=== PATIENT | female | born 1955 | race Two or more races ===

== ENCOUNTER 2016-11-26 11:23 | Outpatient (CLI) | payer OTHER | END 2016-11-26 13:23 | disposition home or self-care (01) | LOC: ECT 11:23 | DX: F33.2 Major depressive disorder, recurrent severe without psychotic features (principal); R45.851 Suicidal ideations ==

== ENCOUNTER 2016-11-29 05:03 | Outpatient (RCR) | payer OTHER ==
[~2016-11-29] VITALS: Ht 152.4 cm; Wt 79.4 kg
[2016-11-29] MEDS ORDERED: Succinylcholine 20mg/ml 10ml vial ONE (05:04)
[2016-11-29] MEDS ORDERED: NS 500ML IV ONE (05:04)
[2016-11-29] MEDS ORDERED: Methohexital Sodium Syr 100mg/10ml IVP ONE (05:04)
[2016-11-29] MEDS ORDERED: Midazolam 2mg/2ml Inj ONE (05:04)
[2016-11-29] MEDS ORDERED: Sodium Chloride 500ML 500 ML IV ONE (09:55)
[2016-12-02] MEDS ORDERED: Methohexital Sodium Syr 100mg/10ml IVP ONE (06:00)
[2016-12-02] MEDS ORDERED: Midazolam 2mg/2ml Inj ONE ×2 (06:00)
[2016-12-02] MEDS ORDERED: Succinylcholine 20mg/ml 10ml vial ONE (06:00)
[2016-12-02] MEDS ORDERED: Sodium Chloride 500ML 500 ML IV ONE (11:03)
[2016-12-04] MEDS ORDERED: Methohexital Sodium Syr 100mg/10ml IVP ONE (07:00)
[2016-12-04] MEDS ORDERED: Succinylcholine 20mg/ml 10ml vial ONE (07:00)
[2016-12-04] MEDS ORDERED: Midazolam 2mg/2ml Inj ONE (07:00)
[2016-12-04] MEDS ORDERED: Sodium Chloride 500ML 500 ML IV ONE (09:18)
[2016-12-06] MEDS ORDERED: Succinylcholine 20mg/ml 10ml vial ONE (06:00)
[2016-12-06] MEDS ORDERED: Midazolam 2mg/2ml Inj ONE (06:00)
[2016-12-06] MEDS ORDERED: Methohexital Sodium Syr 100mg/10ml IVP ONE (06:00)
[2016-12-06] MEDS ORDERED: Sodium Chloride 500ML 500 ML IV ONE (08:52)
== END 2016-12-07 | disposition home or self-care (01) ==
LOC: ECT 05:03
DX: F33.2 Major depressive disorder, recurrent severe without psychotic features (principal)
CPT/HCPCS: 90870; J0330; J2250; J7040

== ENCOUNTER 2016-12-09 07:30 | Outpatient (RCR) | payer OTHER ==
[~2016-12-09] VITALS: Ht 30.5 cm; Wt 0.5 kg
[2016-12-09] MEDS ORDERED: Succinylcholine 20mg/ml 10ml vial ONE (07:31)
[2016-12-09] MEDS ORDERED: Methohexital Sodium Syr 100mg/10ml IVP ONE (07:31)
[2016-12-09] MEDS ORDERED: NS 500ML IV ONE (07:31)
[2016-12-09] MEDS ORDERED: Midazolam 2mg/2ml Inj ONE (07:31)
[2016-12-09] MEDS ORDERED: Sodium Chloride 500ML 500 ML IV ONE (09:06)
== END 2017-01-07 | disposition home or self-care (01) ==
LOC: ECT 07:30
DX: F33.2 Major depressive disorder, recurrent severe without psychotic features (principal)
CPT/HCPCS: 90870; J0330; J2250; J7040

== ENCOUNTER 2017-01-22 10:27 | Outpatient (RCR) | payer OTHER ==
[~2017-01-22] VITALS: Ht 152.4 cm; Wt 78.0 kg
[2017-01-22] MEDS ORDERED: Methohexital Sodium Syr 100mg/10ml IVP ONE ×3 (10:28)
[2017-01-22] MEDS ORDERED: Midazolam 2mg/2ml Inj ONE ×3 (10:28)
[2017-01-22] MEDS ORDERED: Succinylcholine 20mg/ml 10ml vial ONE ×3 (10:28)
[2017-01-22 11:00] VITALS: BP 112/62
[2017-01-22] MEDS ORDERED: Sodium Chloride 500ML 500 ML IV ONE (11:13)
[2017-01-22 11:15] VITALS: BP 117/46
[2017-01-22 11:20] VITALS: BP 118/51
[2017-01-22 11:25] VITALS: BP 111/48
[2017-01-22 11:30] VITALS: BP 120/52
[2017-01-24] MEDS ORDERED: Methohexital Sodium Syr 100mg/10ml IVP ONE (06:00)
[2017-01-24] MEDS ORDERED: Succinylcholine 20mg/ml 10ml vial ONE (06:00)
[2017-01-24] MEDS ORDERED: Midazolam 2mg/2ml Inj ONE (06:00)
[2017-01-24 09:16] VITALS: BP 116/57
[2017-01-24] MEDS ORDERED: Sodium Chloride 500ML 500 ML IV ONE (09:30)
[2017-01-24 09:35] VITALS: BP 102/44
[2017-01-24 09:40] VITALS: BP_SYST 108; BP_DIAS 42; BP_DIAS 44
[2017-01-24 09:45] VITALS: BP 117/49
[2017-01-27 09:08] VITALS: BP 120/66
[2017-01-27] MEDS ORDERED: Sodium Chloride 500ML 500 ML IV ONE (09:23)
[2017-01-27 09:25] VITALS: BP 113/50
[2017-01-27 09:30] VITALS: BP 105/52
[2017-01-27 09:35] VITALS: BP 106/44
[2017-01-27 09:40] VITALS: BP 103/46
[2017-01-29 09:56] VITALS: BP 107/55
[2017-01-29] MEDS ORDERED: Sodium Chloride 500ML 500 ML IV ONE (10:20)
[2017-01-29 10:25] VITALS: BP 127/47
[2017-01-29 10:30] VITALS: BP 116/48
[2017-01-29 10:35] VITALS: BP 119/44
[2017-01-29 10:40] VITALS: BP 107/52
[2017-01-29 10:43] VITALS: BP 127/47
[2017-02-03] MEDS ORDERED: Midazolam 2mg/2ml Inj ONE (08:00)
[2017-02-03] MEDS ORDERED: Succinylcholine 20mg/ml 10ml vial ONE (08:00)
[2017-02-03] MEDS ORDERED: Methohexital Sodium Syr 100mg/10ml IVP ONE (08:00)
[2017-02-03 08:23] VITALS: BP 112/62
[2017-02-03 08:48] VITALS: BP 111/38
[2017-02-03] MEDS ORDERED: Sodium Chloride 500ML 500 ML IV ONE (08:48)
[2017-02-03] MEDS ORDERED: Atropine Sulfate 0.4mg/ml inj IVP PRN (08:48)
[2017-02-03 08:53] VITALS: BP 104/48
[2017-02-03 08:58] VITALS: BP 105/49
[2017-02-03 09:03] VITALS: BP 108/44
== END 2017-02-06 | disposition home or self-care (01) ==
LOC: ECT 10:27
DX: F33.2 Major depressive disorder, recurrent severe without psychotic features (principal)
CPT/HCPCS: 90870; J0330; J2250

== ENCOUNTER 2017-02-07 07:47 | Outpatient (RCR) | payer OTHER ==
[~2017-02-07] VITALS: Ht 152.4 cm; Wt 78.0 kg
[2017-02-07] MEDS ORDERED: Succinylcholine 20mg/ml 10ml vial ONE ×2 (07:48)
[2017-02-07] MEDS ORDERED: Methohexital Sodium 500mg Vial IVP ONE (07:48)
[2017-02-07] MEDS ORDERED: Methohexital Sodium Syr 100mg/10ml IVP ONE (07:48)
[2017-02-07] MEDS ORDERED: Midazolam 2mg/2ml Inj ONE ×2 (07:48)
[2017-02-07 08:15] VITALS: BP 116/58
[2017-02-07] MEDS ORDERED: Sodium Chloride 500ML 500 ML IV ONE (08:32)
[2017-02-07 08:35] VITALS: BP 110/45
[2017-02-07 08:40] VITALS: BP 111/44
[2017-02-07 08:45] VITALS: BP 115/46
[2017-02-07 08:50] VITALS: BP 109/45
[2017-02-10] MEDS ORDERED: Succinylcholine 20mg/ml 10ml vial ONE (07:00)
[2017-02-10] MEDS ORDERED: Midazolam 2mg/2ml Inj ONE (07:00)
[2017-02-10] MEDS ORDERED: Methohexital Sodium Syr 100mg/10ml IVP ONE (07:00)
[2017-02-10 09:41] VITALS: BP 119/62
[2017-02-10] MEDS ORDERED: Sodium Chloride 500ML 500 ML IV ONE (09:55)
[2017-02-10 10:00] VITALS: BP 123/46
[2017-02-10 10:05] VITALS: BP 117/49
[2017-02-10 10:10] VITALS: BP 114/51
[2017-02-10 10:15] VITALS: BP 117/51
[2017-02-14] MEDS ORDERED: Methohexital Sodium Syr 100mg/10ml IVP ONE (07:00)
[2017-02-14] MEDS ORDERED: Midazolam 2mg/2ml Inj ONE (07:00)
[2017-02-14] MEDS ORDERED: Succinylcholine 20mg/ml 10ml vial ONE (07:00)
[2017-02-14 08:46] VITALS: BP 116/57
[2017-02-14] MEDS ORDERED: Sodium Chloride 500ML 500 ML IV ONE (08:59)
[2017-02-14 09:00] VITALS: BP 119/46
[2017-02-14 09:05] VITALS: BP 114/46
[2017-02-14 09:10] VITALS: BP 116/48
[2017-02-14 09:15] VITALS: BP 114/45
[2017-02-21 08:35] VITALS: BP 114/58
[2017-02-21] MEDS ORDERED: Sodium Chloride 500ML 500 ML IV ONE (08:54)
[2017-02-21 08:55] VITALS: BP 97/46
[2017-02-21 09:00] VITALS: BP 110/42
[2017-02-21 09:05] VITALS: BP 102/49
[2017-02-21 09:10] VITALS: BP 109/45
[2017-03-05] MEDS ORDERED: Midazolam 2mg/2ml Inj ONE (08:00)
[2017-03-05] MEDS ORDERED: Methohexital Sodium Syr 100mg/10ml IVP ONE (08:00)
[2017-03-05] MEDS ORDERED: Succinylcholine 20mg/ml 10ml vial ONE (08:00)
[2017-03-05 08:47] VITALS: BP 115/58
[2017-03-05] MEDS ORDERED: Sodium Chloride 500ML 500 ML IV ONE (09:08)
[2017-03-05] MEDS ORDERED: Atropine Sulfate 0.4mg/ml inj IVP PRN (09:08)
[2017-03-05 09:10] VITALS: BP 106/42
[2017-03-05 09:15] VITALS: BP 93/45
[2017-03-05 09:20] VITALS: BP 104/48
[2017-03-05 09:25] VITALS: BP 102/45
== END 2017-03-09 | disposition home or self-care (01) ==
LOC: ECT 07:47
DX: F33.2 Major depressive disorder, recurrent severe without psychotic features (principal)
CPT/HCPCS: 90870; J0330; J2250; J3490

== ENCOUNTER 2017-03-24 06:01 | Outpatient (RCR) | payer OTHER ==
[~2017-03-24] VITALS: Ht 152.4 cm; Wt 78.0 kg
[2017-03-24] MEDS ORDERED: Succinylcholine 20mg/ml 10ml vial ONE ×2 (06:02)
[2017-03-24] MEDS ORDERED: Midazolam 2mg/2ml Inj ONE ×2 (06:02)
[2017-03-24] MEDS ORDERED: Methohexital Sodium Syr 100mg/10ml IVP ONE ×2 (06:02)
[2017-03-24 10:49] VITALS: BP 118/61
[2017-03-24] MEDS ORDERED: Sodium Chloride 500ML 500 ML IV ONE (11:08)
[2017-03-24 11:10] VITALS: BP 103/40
[2017-03-24 11:15] VITALS: BP 106/43
[2017-03-24 11:20] VITALS: BP 107/44
[2017-03-24 11:25] VITALS: BP 110/43
[2017-03-26] MEDS ORDERED: Succinylcholine 20mg/ml 10ml vial ONE (08:00)
[2017-03-26] MEDS ORDERED: Midazolam 2mg/2ml Inj ONE (08:00)
[2017-03-26] MEDS ORDERED: Methohexital Sodium Syr 100mg/10ml IVP ONE (08:00)
[2017-03-26 08:30] VITALS: BP 118/55
[2017-03-26] MEDS ORDERED: Sodium Chloride 500ML 500 ML IV ONE (08:43)
[2017-03-26 08:45] VITALS: BP 110/42
[2017-03-26 08:50] VITALS: BP 100/49
[2017-03-26 09:00] VITALS: BP 112/48
[2017-03-28] MEDS ORDERED: Midazolam 2mg/2ml Inj ONE (08:00)
[2017-03-28] MEDS ORDERED: Methohexital Sodium Syr 100mg/10ml IVP ONE (08:00)
[2017-03-28] MEDS ORDERED: Succinylcholine 20mg/ml 10ml vial ONE (08:00)
[2017-03-28 08:09] VITALS: BP 109/67
[2017-03-28] MEDS ORDERED: Sodium Chloride 500ML 500 ML IV ONE (08:27)
[2017-03-28 08:30] VITALS: BP 128/58
[2017-03-28 08:35] VITALS: BP 118/58
[2017-03-28 08:40] VITALS: BP 110/58
[2017-03-28 08:45] VITALS: BP 106/46
[2017-03-31 08:00] VITALS: BP 118/59
[2017-03-31] MEDS ORDERED: Sodium Chloride 500ML 500 ML IV ONE (08:15)
[2017-03-31 08:20] VITALS: BP 106/42
[2017-03-31 08:25] VITALS: BP 103/43
[2017-03-31 08:30] VITALS: BP 99/39
[2017-03-31 08:35] VITALS: BP 100/46
[2017-04-04] MEDS ORDERED: Succinylcholine 20mg/ml 10ml vial ONE (07:00)
[2017-04-04] MEDS ORDERED: Midazolam 2mg/2ml Inj ONE (07:00)
[2017-04-04] MEDS ORDERED: Methohexital Sodium Syr 100mg/10ml IVP ONE (07:00)
[2017-04-04 08:38] VITALS: BP 125/61
[2017-04-04] MEDS ORDERED: Sodium Chloride 500ML 500 ML IV ONE (08:53)
[2017-04-04 08:55] VITALS: BP 114/53
[2017-04-04 09:00] VITALS: BP 104/32
[2017-04-04 09:05] VITALS: BP 106/27
[2017-04-04 09:10] VITALS: BP 112/43
[2017-04-07] MEDS ORDERED: Succinylcholine 20mg/ml 10ml vial ONE (06:00)
[2017-04-07] MEDS ORDERED: Methohexital Sodium Syr 100mg/10ml IVP ONE (06:00)
[2017-04-07] MEDS ORDERED: Midazolam 2mg/2ml Inj ONE (06:00)
== END 2017-04-09 | disposition home or self-care (01) ==
LOC: ECT 06:01
DX: F33.2 Major depressive disorder, recurrent severe without psychotic features (principal)
CPT/HCPCS: 90870; J0330; J2250

== ENCOUNTER 2017-04-11 05:36 | Outpatient (RCR) | payer OTHER ==
[~2017-04-11] VITALS: Ht 152.4 cm; Wt 78.0 kg
[2017-04-11] MEDS ORDERED: Midazolam 2mg/2ml Inj ONE (05:37)
[2017-04-11] MEDS ORDERED: Methohexital Sodium Syr 100mg/10ml IVP ONE (05:37)
[2017-04-11] MEDS ORDERED: Succinylcholine 20mg/ml 10ml vial ONE (05:37)
[2017-04-11 08:19] VITALS: BP 126/68
[2017-04-11] MEDS ORDERED: Sodium Chloride 500ML 500 ML IV ONE (08:34)
[2017-04-11 08:35] VITALS: BP 117/50
[2017-04-11 08:40] VITALS: BP 106/44
[2017-04-11 08:45] VITALS: BP 104/39
[2017-04-11 08:50] VITALS: BP 105/38
[2017-04-11 08:55] VITALS: BP 107/39
[2017-04-16] MEDS ORDERED: Midazolam 2mg/2ml Inj ONE (07:00)
[2017-04-16] MEDS ORDERED: Succinylcholine 20mg/ml 10ml vial ONE (07:00)
[2017-04-16] MEDS ORDERED: Methohexital Sodium Syr 100mg/10ml IVP ONE (07:00)
[2017-04-16 09:41] VITALS: BP 116/57
[2017-04-16] MEDS ORDERED: Sodium Chloride 500ML 500 ML IV ONE (10:03)
[2017-04-16 10:05] VITALS: BP 101/41
[2017-04-16 10:10] VITALS: BP 106/38
[2017-04-16 10:15] VITALS: BP 110/40
[2017-04-21] MEDS ORDERED: Succinylcholine 20mg/ml 10ml vial ONE (06:00)
[2017-04-21] MEDS ORDERED: Methohexital Sodium Syr 100mg/10ml IVP ONE (06:00)
[2017-04-21] MEDS ORDERED: Midazolam 2mg/2ml Inj ONE (06:00)
[2017-04-21 09:18] VITALS: BP 128/52
[2017-04-21] MEDS ORDERED: Sodium Chloride 500ML 500 ML IV ONE (09:31)
[2017-04-21 09:35] VITALS: BP 127/57
[2017-04-21 09:40] VITALS: BP 118/56
[2017-04-21 09:45] VITALS: BP 124/56
[2017-04-21 09:50] VITALS: BP 131/60
[2017-04-21 09:55] VITALS: BP 128/60
[2017-04-30] MEDS ORDERED: Midazolam 2mg/2ml Inj ONE (06:00)
[2017-04-30] MEDS ORDERED: Succinylcholine 20mg/ml 10ml vial ONE (06:00)
[2017-04-30] MEDS ORDERED: Methohexital Sodium Syr 100mg/10ml IVP ONE (06:00)
[2017-04-30 09:14] VITALS: BP 121/65
[2017-04-30 09:30] VITALS: BP 105/47
[2017-04-30] MEDS ORDERED: Sodium Chloride 500ML 500 ML IV ONE (09:30)
[2017-04-30 09:35] VITALS: BP 105/44
[2017-04-30 09:40] VITALS: BP 107/46
[2017-04-30 09:45] VITALS: BP 113/48
== END 2017-05-07 | disposition home or self-care (01) ==
LOC: ECT 05:36
DX: F33.2 Major depressive disorder, recurrent severe without psychotic features (principal)
CPT/HCPCS: 90870; J0330; J2250

== ENCOUNTER 2017-05-19 05:24 | Outpatient (RCR) | payer OTHER ==
[~2017-05-19] VITALS: Ht 30.5 cm; Wt 0.5 kg
[2017-05-19] MEDS ORDERED: Methohexital Sodium Syr 100mg/10ml IVP ONE (05:25)
[2017-05-19] MEDS ORDERED: Succinylcholine 20mg/ml 10ml vial ONE (05:25)
[2017-05-19] MEDS ORDERED: Midazolam 2mg/2ml Inj ONE (05:25)
[2017-05-19] MEDS ORDERED: Atropine Sulfate 0.4mg/ml inj IVP PRN (09:28)
[2017-05-19] MEDS ORDERED: Sodium Chloride 500ML 500 ML IV ONE (09:28)
[2017-05-19 09:30] VITALS: BP 113/45
[2017-05-19 09:35] VITALS: BP 101/54
[2017-05-19 09:40] VITALS: BP 106/45
[2017-05-19 09:45] VITALS: BP 110/43
== END 2017-06-07 | disposition home or self-care (01) ==
LOC: ECT 05:24
DX: F33.2 Major depressive disorder, recurrent severe without psychotic features (principal)
CPT/HCPCS: 90870; J0330; J2250

== ENCOUNTER 2017-07-16 08:18 | Outpatient (RCR) | payer OTHER ==
[~2017-07-16] VITALS: Ht 152.4 cm; Wt 78.0 kg
[2017-07-18] MEDS ORDERED: Midazolam 2mg/2ml Inj ONE (06:00)
[2017-07-18] MEDS ORDERED: Methohexital Sodium Syr 100mg/10ml IVP ONE (06:00)
[2017-07-18] MEDS ORDERED: Succinylcholine 20mg/ml 10ml vial ONE (06:00)
[2017-07-18 08:27] VITALS: BP 128/65
[2017-07-18] MEDS ORDERED: Sodium Chloride 500ML 500 ML IV ONE (08:43)
[2017-07-18 08:45] VITALS: BP 116/40
[2017-07-18 08:50] VITALS: BP 110/38
[2017-07-18 08:55] VITALS: BP 112/38
[2017-07-18 09:00] VITALS: BP 110/43
[2017-07-21] MEDS ORDERED: Midazolam 2mg/2ml Inj ONE (07:00)
[2017-07-21] MEDS ORDERED: Methohexital Sodium Syr 100mg/10ml IVP ONE (07:00)
[2017-07-21] MEDS ORDERED: Succinylcholine 20mg/ml 10ml vial ONE (07:00)
[2017-07-21 09:59] VITALS: BP 129/59
[2017-07-21] MEDS ORDERED: Atropine Sulfate 0.4mg/ml inj IVP PRN (10:23)
[2017-07-21] MEDS ORDERED: Sodium Chloride 500ML 500 ML IV ONE (10:23)
[2017-07-21 10:25] VITALS: BP 108/35
[2017-07-21 10:30] VITALS: BP 109/39
[2017-07-21 10:35] VITALS: BP 12/36
[2017-07-21 10:40] VITALS: BP 108/36
[2017-07-23] MEDS ORDERED: Succinylcholine 20mg/ml 10ml vial ONE (07:00)
[2017-07-23] MEDS ORDERED: Midazolam 2mg/2ml Inj ONE (07:00)
[2017-07-23] MEDS ORDERED: Methohexital Sodium Syr 100mg/10ml IVP ONE (07:00)
[2017-07-23 10:05] VITALS: BP 120/61
[2017-07-23] MEDS ORDERED: Atropine Sulfate 0.4mg/ml inj IVP PRN (10:23)
[2017-07-23] MEDS ORDERED: Sodium Chloride 500ML 500 ML IV ONE (10:23)
[2017-07-23 10:25] VITALS: BP 116/43
[2017-07-23 10:30] VITALS: BP 113/42
[2017-07-23 10:35] VITALS: BP 119/45
[2017-07-23 10:40] VITALS: BP 122/42
[2017-07-25] MEDS ORDERED: Succinylcholine 20mg/ml 10ml vial ONE (07:00)
[2017-07-25] MEDS ORDERED: Methohexital Sodium Syr 100mg/10ml IVP ONE (07:00)
[2017-07-25] MEDS ORDERED: Midazolam 2mg/2ml Inj ONE (07:00)
[2017-07-25 08:14] VITALS: BP 139/71
[2017-07-25] MEDS ORDERED: Sodium Chloride 500ML 500 ML IV ONE (08:32)
[2017-07-25 08:35] VITALS: BP 126/37
[2017-07-25 08:40] VITALS: BP 107/40
[2017-07-25 08:45] VITALS: BP 107/43
[2017-07-25 08:50] VITALS: BP 112/39
[2017-07-28 09:15] VITALS: BP 147/66
[2017-07-28] MEDS ORDERED: Sodium Chloride 500ML 500 ML IV ONE (09:35)
[2017-07-28 09:40] VITALS: BP 120/38
[2017-07-28 09:45] VITALS: BP 115/39
[2017-07-28 09:50] VITALS: BP 105/35
[2017-07-28 09:55] VITALS: BP 115/43
[2017-07-30] MEDS ORDERED: Succinylcholine 20mg/ml 10ml vial ONE (08:00)
[2017-07-30] MEDS ORDERED: Methohexital Sodium Syr 100mg/10ml IVP ONE (08:00)
[2017-07-30] MEDS ORDERED: Midazolam 2mg/2ml Inj ONE (08:00)
[2017-07-30 09:45] VITALS: BP 138/60
[2017-07-30] MEDS ORDERED: Sodium Chloride 500ML 500 ML IV ONE (10:07)
[2017-07-30] MEDS ORDERED: Atropine Sulfate 0.4mg/ml inj IVP PRN (10:07)
[2017-07-30 10:10] VITALS: BP 117/39
[2017-07-30 10:15] VITALS: BP 107/39
[2017-07-30 10:20] VITALS: BP 111/44
[2017-07-30 10:25] VITALS: BP 113/48
[2017-08-01] MEDS ORDERED: Methohexital Sodium Syr 100mg/10ml IVP ONE (08:00)
[2017-08-01] MEDS ORDERED: Succinylcholine 20mg/ml 10ml vial ONE (08:00)
[2017-08-01] MEDS ORDERED: Midazolam 2mg/2ml Inj ONE (08:00)
[2017-08-01 08:13] VITALS: BP 127/62
[2017-08-01] MEDS ORDERED: Sodium Chloride 500ML 500 ML IV ONE (08:29)
[2017-08-01 08:30] VITALS: BP 113/50
[2017-08-01 08:35] VITALS: BP 115/38
[2017-08-01 08:40] VITALS: BP 108/39
[2017-08-01 08:45] VITALS: BP 114/40
[2017-08-06] MEDS ORDERED: Succinylcholine 20mg/ml 10ml vial ONE (07:00)
[2017-08-06] MEDS ORDERED: Midazolam 2mg/2ml Inj ONE (07:00)
[2017-08-06] MEDS ORDERED: Methohexital Sodium Syr 100mg/10ml IVP ONE (07:00)
[2017-08-06 09:59] VITALS: BP 118/63
[2017-08-06 10:16] VITALS: BP 127/42
[2017-08-06] MEDS ORDERED: Sodium Chloride 500ML 500 ML IV ONE (10:16)
[2017-08-06 10:21] VITALS: BP 117/44
[2017-08-06 10:26] VITALS: BP 115/38
[2017-08-06 10:31] VITALS: BP 107/32
== END 2017-08-07 | disposition home or self-care (01) ==
LOC: ECT 08:18
DX: F33.2 Major depressive disorder, recurrent severe without psychotic features (principal)
CPT/HCPCS: 90870; J0330; J2250

== ENCOUNTER 2017-08-08 04:50 | Outpatient (RCR) | payer OTHER ==
[~2017-08-08] VITALS: Ht 152.4 cm; Wt 78.0 kg
[2017-08-08] MEDS ORDERED: Succinylcholine 20mg/ml 10ml vial ONE (04:51)
[2017-08-08] MEDS ORDERED: Methohexital Sodium Syr 100mg/10ml IVP ONE (04:51)
[2017-08-08] MEDS ORDERED: Midazolam 2mg/2ml Inj ONE (04:51)
[2017-08-08 08:43] VITALS: BP 122/66
[2017-08-08] MEDS ORDERED: Sodium Chloride 500ML 500 ML IV ONE (08:57)
[2017-08-08 09:00] VITALS: BP 127/38
[2017-08-08 09:05] VITALS: BP 109/41
[2017-08-08 09:10] VITALS: BP 103/38
[2017-08-08 09:15] VITALS: BP 109/31
[2017-08-11] MEDS ORDERED: Succinylcholine 20mg/ml 10ml vial ONE (07:00)
[2017-08-11] MEDS ORDERED: Midazolam 2mg/2ml Inj ONE (07:00)
[2017-08-11] MEDS ORDERED: Methohexital Sodium Syr 100mg/10ml IVP ONE (07:00)
[2017-08-11 09:45] VITALS: BP 119/61
[2017-08-11 10:05] VITALS: BP 109/38
[2017-08-11 10:10] VITALS: BP 106/35
[2017-08-11 10:15] VITALS: BP 100/24
[2017-08-11 10:20] VITALS: BP 111/28
[2017-08-11] MEDS ORDERED: Sodium Chloride 500ML 500 ML IV ONE (11:03)
[2017-08-18] MEDS ORDERED: Midazolam 2mg/2ml Inj ONE (06:00)
[2017-08-18] MEDS ORDERED: Succinylcholine 20mg/ml 10ml vial ONE (06:00)
[2017-08-18] MEDS ORDERED: Methohexital Sodium Syr 100mg/10ml IVP ONE (06:00)
[2017-08-18 09:57] VITALS: BP 137/69
[2017-08-18] MEDS ORDERED: Sodium Chloride 500ML 500 ML IV ONE (10:18)
[2017-08-18] MEDS ORDERED: Atropine Sulfate 0.4mg/ml inj IVP PRN (10:18)
[2017-08-18 10:20] VITALS: BP 105/47
[2017-08-18 10:25] VITALS: BP 104/49
[2017-08-18 10:30] VITALS: BP 106/52
[2017-08-18 10:35] VITALS: BP 107/50
[2017-09-01] MEDS ORDERED: Midazolam 2mg/2ml Inj ONE (07:00)
[2017-09-01] MEDS ORDERED: Succinylcholine 20mg/ml 10ml vial ONE (07:00)
[2017-09-01] MEDS ORDERED: Methohexital Sodium Syr 100mg/10ml IVP ONE (07:00)
[2017-09-01 07:56] VITALS: BP 128/68
[2017-09-01] MEDS ORDERED: Sodium Chloride 500ML 500 ML IV ONE (08:09)
[2017-09-01 08:10] VITALS: BP 121/51
[2017-09-01 08:15] VITALS: BP 121/69
[2017-09-01 08:20] VITALS: BP 112/73
[2017-09-01 08:25] VITALS: BP 120/69
== END 2017-09-06 | disposition home or self-care (01) ==
LOC: ECT 04:50
DX: F33.2 Major depressive disorder, recurrent severe without psychotic features (principal)
CPT/HCPCS: 90870; J0330; J2250

== ENCOUNTER 2017-09-21 07:27 | Outpatient (RCR) | payer OTHER ==
[~2017-09-21] VITALS: Ht 169.4 cm; Wt 78.0 kg
[2017-09-24] MEDS ORDERED: Methohexital Sodium Syr 100mg/10ml IVP ONE ×2 (08:00)
[2017-09-24] MEDS ORDERED: Midazolam 2mg/2ml Inj ONE ×2 (08:00)
[2017-09-24] MEDS ORDERED: Succinylcholine 20mg/ml 10ml vial ONE ×2 (08:00)
[2017-09-24] MEDS ORDERED: NS 500ML ONE (08:00)
[2017-09-24 09:30] VITALS: BP 132/59
[2017-09-24] MEDS ORDERED: Sodium Chloride 500ML 500 ML IV ONE (09:45)
[2017-09-24 09:50] VITALS: BP 120/44
[2017-09-24 09:55] VITALS: BP 107/42
[2017-09-24 10:00] VITALS: BP 110/39
[2017-09-24 10:05] VITALS: BP 112/42
== END 2017-10-07 | disposition home or self-care (01) ==
LOC: ECT 07:27
DX: F33.2 Major depressive disorder, recurrent severe without psychotic features (principal)
CPT/HCPCS: 90870; J0330; J2250; J7040

== ENCOUNTER 2017-10-31 04:39 | Outpatient (RCR) | payer OTHER ==
[~2017-10-31] VITALS: Ht 152.4 cm; Wt 78.0 kg
[2017-10-31] MEDS ORDERED: Methohexital Sodium Syr 100mg/10ml IVP ONE (04:40)
[2017-10-31] MEDS ORDERED: Succinylcholine 20mg/ml 10ml vial ONE (04:40)
[2017-10-31] MEDS ORDERED: Midazolam 2mg/2ml Inj ONE (04:40)
[2017-10-31 08:29] VITALS: BP 123/55
[2017-10-31] MEDS ORDERED: Sodium Chloride 500ML 500 ML IV ONE (08:35)
[2017-10-31 08:40] VITALS: BP 122/53
[2017-10-31 08:45] VITALS: BP 123/45
[2017-10-31 08:50] VITALS: BP 113/50
[2017-10-31 08:55] VITALS: BP 116/48
== END 2017-11-07 | disposition home or self-care (01) ==
LOC: ECT 04:39
DX: F33.2 Major depressive disorder, recurrent severe without psychotic features (principal)
CPT/HCPCS: 90870; J0330; J2250